=== PATIENT | female | born 1970 | race Hispanic/Latino ===

== ENCOUNTER 2017-09-11 18:39 | Emergency (ER) | payer SELFPAY ==
[2017-09-11] MEDS ORDERED: Ketorolac Tromethamine 30 MG/ML VIAL ONE (19:38)
--- NOTE | 2017-09-11 20:26 | RAD ---
TWO VIEWS RIGHT FORELEG: Indication: Right leg pain for two weeks after an injury while playing soccer with his son. Comparison: None. IMPRESSION: No acute osseous abnormality. No soft tissue abnormality demonstrated. POS: [facility]
--- NOTE | 2017-09-11 21:15 | ULT ---
DOPPLER VENOUS ULTRASOUND OF THE RIGHT LOWER EXTREMITY: Indication: Right lower extremity pain for two weeks after playing soccer. TECHNIQUE: Jurado scale, color Doppler, and vascular duplex with spectral analysis was performed of the deep veno us structures of the right lower extremity. The common femoral vein, superficial femoral vein, popli teal vein, posterior tibial vein, proximal greater saphenous, and proximal profunda veins were asses sed. FINDINGS: There is normal compression, flow, and augmentation seen within the deep venous structures of the ri ght lower extremity. IMPRESSION: No evidence of DVT within the right lower extremity. POS: [facility]
== END 2017-09-11 21:05 | disposition home or self-care (01) ==
LOC: ERS 18:39
DX: S80.11XA Contusion of right lower leg, initial encounter (principal); E11.9 Type 2 diabetes mellitus without complications; W21.02XA Struck by soccer ball, initial encounter; Y93.66 Activity, soccer
CPT/HCPCS: 96372; J1885

== ENCOUNTER 2017-10-22 16:45 | Emergency (ER) | payer SELFPAY ==
[2017-10-22 17:40] LABS: Bilirubin Negative (Negative); Blood, Urine Negative (Negative); Glucose, Urine (Dipstick) Negative (Negative); Ketone, Urine Negative (Negative); Nitrite Negative (Negative); Protein, Urine (Dipstick) Negative (Neg-Trace); Urobilinogen 0.2 mg/dL (0.2-1.0)
[2017-10-22 17:40] LABS: #Basophils 0.1 thou/uL (0.0-0.2); #Eosinphils 0.1 thou/uL (0.0-0.7); #Lymphocytes 3.7 thou/uL (1.20-3.40); #Monocytes 0.8 thou/uL (0.11-0.59); #Neutrophils 5.3 thou/uL (1.40-6.50); %Eosinophils 1.4 % (0.0-10.0); %Lymphocytes 36.9 % (21.0-51.0); %Monocytes 7.5 % (0.0-10.0); Hematocrit 43.8 % (36.0-47.0); Red Blood Cell (RBC) Count 4.88 mill/uL (4.20-5.40)
[2017-10-22 18:03] LABS: ALT (SGPT) 21 U/L (8-55); AST (SGOT) 15 U/L (5-34); Alkaline Phosphatase 105 U/L (40-150); Anion Gap 15 mmol/L (10-20); BUN (Urea Nitrogen) 15 mg/dL (7.0-18.7); Bilirubin, Total 0.2 mg/dL (0.2-1.2); Calc. Creatinine Clearance 0 mL/min (70-130); Calcium 9.8 mg/dL (7.8-10.44); Carbon Dioxide 24 mmol/L (22-29); Chloride 105 mmol/L (98-107); Estimated GFR-MDRD 89; Globulin 3.6 g/dL (2.4-3.5); Protein, Total 7.9 g/dL (6.0-8.3)
[2017-10-22] MEDS ORDERED: Dicyclomine 20 MG TAB ONE (18:20)
--- NOTE | 2017-10-22 18:36 | ULT ---
RIGHT UPPER QUADRANT ULTRASOUND: Date: 10/22/17 COMPARISON: None. HISTORY: Right upper quadrant pain. TECHNIQUE: Multiplanar Jurado scale sonographic imaging of the right upper quadrant provided. FINDINGS: Imaged pancreatic parenchyma is grossly unremarkable. The tail is obscured by bowel gas. No focal elizabeth er lesion or intrahepatic biliary dilatation. CBD measures 2.0 mm, within normal limits. The sonograp her reports a negative Coleman's sign. No gallbladder wall thickening, pericholecystic fluid, or galls tones noted. The right kidney measures 9.5 cm in craniocaudal dimension and demonstrates no stone, hydronephrosis, or mass lesion. IMPRESSION: No acute findings. POS: [facility]
--- NOTE | 2017-10-22 19:27 | RAD ---
PORTABLE UPRIGHT FRONTAL CHEST RADIOGRAPH: Date: 10/22/17 COMPARISON: 06/02/14. HISTORY: Nausea and vomiting, pain. FINDINGS: No pneumothorax, pleural fluid, focal consolidation, or alveolar edema. Heart and mediastinal contour s unremarkable. IMPRESSION: No acute findings. POS: [facility]
== END 2017-10-22 20:47 | disposition home or self-care (01) ==
LOC: ERS 16:45
DX: K29.70 Gastritis, unspecified, without bleeding (principal); K21.9 Gastro-esophageal reflux disease without esophagitis; E11.9 Type 2 diabetes mellitus without complications; Z79.84 Long term (current) use of oral hypoglycemic drugs; Z79.899 Other long term (current) drug therapy
CPT/HCPCS: 71010; 76705; 80053; 81003; 81025; 83690; 85025; 94640; J7620

== ENCOUNTER 2018-01-30 00:36 | Emergency (ER) | payer SELFPAY ==
[2018-01-30] MEDS ORDERED: Ketorolac Tromethamine 30 MG/ML VIAL ONE (01:00)
[2018-01-30] MEDS ORDERED: Morphine 4 MG/ML VIAL ONE (01:01)
== END 2018-01-30 01:24 | disposition home or self-care (01) ==
LOC: ERS 00:36
DX: S39.012A Strain of muscle, fascia and tendon of lower back, initial encounter (principal); E11.9 Type 2 diabetes mellitus without complications; Z79.84 Long term (current) use of oral hypoglycemic drugs; X58.XXXA Exposure to other specified factors, initial encounter
CPT/HCPCS: 96372; J1885; J2270

== ENCOUNTER 2018-03-25 05:53 | Emergency (ER) | payer SELFPAY | END 2018-03-25 06:50 | disposition home or self-care (01) | LOC: ERS 05:53 | DX: H66.92 Otitis media, unspecified, left ear (principal); E11.9 Type 2 diabetes mellitus without complications; Z79.899 Other long term (current) drug therapy; Z79.84 Long term (current) use of oral hypoglycemic drugs | CPT/HCPCS: 99282 ==

== ENCOUNTER 2018-07-11 08:13 | Emergency (ER) | payer SELFPAY ==
[2018-07-11 08:34] LABS: Bilirubin Negative (Negative); Blood, Urine Negative (Negative); Clarity CLOUDY (Clear); Glucose, Urine (Dipstick) Negative (Negative); Leukocyte Negative (Negative); Nitrite Negative (Negative); Protein, Urine (Dipstick) Negative (Neg-Trace); Specific Gravity, Urine 1.023 (1.002-1.036); Urobilinogen 0.2 mg/dL (0.2-1.0); pH, Urine 5.5 (5.0-9.0)
[2018-07-11 08:45] LABS: #Basophils 0.1 thou/uL (0.0-0.2); #Eosinphils 0.2 thou/uL (0.0-0.7); #Lymphocytes 3.2 thou/uL (1.20-3.40); #Monocytes 0.6 thou/uL (0.11-0.59); #Neutrophils 4.7 thou/uL (1.40-6.50); %Eosinophils 1.9 % (0.0-10.0); %Lymphocytes 36.3 % (21.0-51.0); %Monocytes 6.3 % (0.0-10.0); %Neutrophils 54.5 % (42.0-75.0); Hemoglobin 13.7 g/dL (12.0-16.0); Mean Corpuscular HGB CONC 33.7 g/dL (32.0-36.0); Mean Corpuscular Hemoglobin 28.6 pg (27.0-31.0); Mean Corpuscular Volume 84.9 fL (78.0-98.0); Mean Platelet Volume 7.9 fL (7.4-10.4); Platelet Count 305 thou/uL (130-400); RBC Distribution Width 12.4 % (11.5-14.5); Red Blood Cell (RBC) Count 4.81 mill/uL (4.20-5.40); White Blood Cell (WBC) Count 8.7 thou/uL (4.8-10.8)
[2018-07-11 09:01] LABS: ALT (SGPT) 66 U/L (8-55); AST (SGOT) 39 U/L (5-34); Albumin 4.4 g/dL (3.5-5.0); Alkaline Phosphatase 103 U/L (40-150); Anion Gap 14 mmol/L (10-20); BUN (Urea Nitrogen) 14 mg/dL (7.0-18.7); Bilirubin, Total 0.3 mg/dL (0.2-1.2); Calc. Creatinine Clearance 0 mL/min (70-130); Calcium 10.1 mg/dL (7.8-10.44); Carbon Dioxide 24 mmol/L (22-29); Chloride 103 mmol/L (98-107); Estimated GFR-MDRD 77; Globulin 3.7 g/dL (2.4-3.5); Glucose 199 mg/dL (70-105); Lipase 13 U/L (8-78); Potassium 4.4 mmol/L (3.5-5.1); Protein, Total 8.1 g/dL (6.0-8.3); Sodium 137 mmol/L (136-145)
[2018-07-11] MEDS ORDERED: Ondansetron ODT 8 MG TAB ONE (09:25)
[2018-07-11] MEDS ORDERED: Dicyclomine 20 MG TAB ONE (09:25)
== END 2018-07-11 09:54 | disposition home or self-care (01) ==
LOC: ERS 08:13
DX: R19.7 Diarrhea, unspecified (principal); R11.0 Nausea; E11.9 Type 2 diabetes mellitus without complications; Z79.84 Long term (current) use of oral hypoglycemic drugs
CPT/HCPCS: 36415; 80053; 81003; 83690; 85025; 99284

== ENCOUNTER 2018-09-28 07:30 | Emergency (ER) | payer SELFPAY ==
[2018-09-28 08:01] LABS: Bilirubin Negative (Negative); Blood, Urine Large (Negative); Clarity CLOUDY (Clear); Glucose, Urine (Dipstick) 250 mg/dL (Negative); Leukocyte Large (Negative); Nitrite Negative (Negative); Protein, Urine (Dipstick) Negative (Neg-Trace); Specific Gravity, Urine 1.004 (1.002-1.036); Urobilinogen 0.2 mg/dL (0.2-1.0); pH, Urine 6.5 (5.0-9.0)
[2018-09-28 08:05] LABS: Bacteria/HPF None Seen HPF (None Seen); Hyaline Casts/LPF 0-3 HYALINE CAST LPF (0-3 Hyaline); Pathc Cast-AUWi Flag 0.72 (0-2.49); RBC/HPF 0-3 HPF (0-3); Squamous Epithelial None Seen HPF (0-3)
[2018-09-28 08:30] LABS: Pregnancy Test - Urine (BHCG) Negative (Negative); Pregu Control Background? CLEAR/WHITE (CLR/WHITE); Pregu Control Bar Appear? YES (CONTROL BAR); Specific Gravity 1.004 (1.002-1.036)
[2018-09-28] MEDS ORDERED: Ketorolac Tromethamine 60 MG/2 ML VIAL ONE (08:52)
[2018-09-28 09:00] LABS: #Basophils 0.1 thou/uL (0.0-0.2); #Eosinphils 0.1 thou/uL (0.0-0.7); #Lymphocytes 2.8 thou/uL (1.20-3.40); #Monocytes 0.6 thou/uL (0.11-0.59); #Neutrophils 6.3 thou/uL (1.40-6.50); %Basophils 0.5 % (0.0-1.0); %Eosinophils 1.1 % (0.0-10.0); %Lymphocytes 28.4 % (21.0-51.0); %Monocytes 5.8 % (0.0-10.0); %Neutrophils 64.2 % (42.0-75.0); Hemoglobin 13.4 g/dL (12.0-16.0); Mean Corpuscular HGB CONC 32.8 g/dL (32.0-36.0); Mean Corpuscular Hemoglobin 28.2 pg (27.0-31.0); Mean Corpuscular Volume 86.2 fL (78.0-98.0); Mean Platelet Volume 8.4 fL (7.4-10.4); Platelet Count 275 thou/uL (130-400); RBC Distribution Width 11.9 % (11.5-14.5); Red Blood Cell (RBC) Count 4.76 mill/uL (4.20-5.40); White Blood Cell (WBC) Count 9.8 thou/uL (4.8-10.8)
[2018-09-28] MEDS ORDERED: Ciprofloxacin 500 MG TAB ONE (09:07)
[2018-09-28 09:24] LABS: ALT (SGPT) 51 U/L (8-55); AST (SGOT) 22 U/L (5-34); Alkaline Phosphatase 106 U/L (40-150); Anion Gap 11 mmol/L (10-20); BUN (Urea Nitrogen) 7 mg/dL (7.0-18.7); Bilirubin, Total 0.5 mg/dL (0.2-1.2); Calc. Creatinine Clearance 0 mL/min (70-130); Calcium 9.8 mg/dL (7.8-10.44); Carbon Dioxide 28 mmol/L (22-29); Chloride 103 mmol/L (98-107); Estimated GFR-MDRD 83; Globulin 3.2 g/dL (2.4-3.5); Glucose 296 mg/dL (70-105); Potassium 4.2 mmol/L (3.5-5.1); Protein, Total 7.2 g/dL (6.0-8.3); Sodium 138 mmol/L (136-145)
== END 2018-09-28 09:27 | disposition home or self-care (01) ==
LOC: ERS 07:30
DX: N39.0 Urinary tract infection, site not specified (principal); E11.9 Type 2 diabetes mellitus without complications; Z79.84 Long term (current) use of oral hypoglycemic drugs
CPT/HCPCS: 36415; 80053; 81003; 81015; 81025; 85025; 87086; 96372; J1885

== ENCOUNTER 2018-11-19 08:00 | Emergency (ER) | payer SELFPAY ==
[2018-11-19] MEDS ORDERED: Ondansetron ODT 4 MG TAB ONE (08:56)
[2018-11-19 09:08] LABS: #Eosinphils 0.1 thou/uL (0.0-0.7); #Lymphocytes 1.9 thou/uL (1.20-3.40); #Monocytes 0.4 thou/uL (0.11-0.59); #Neutrophils 5.6 thou/uL (1.40-6.50); %Basophils 0.2 % (0.0-1.0); %Eosinophils 0.8 % (0.0-10.0); %Lymphocytes 24.2 % (21.0-51.0); %Monocytes 4.4 % (0.0-10.0); %Neutrophils 70.5 % (42.0-75.0); Hemoglobin 13.8 g/dL (12.0-16.0); Mean Corpuscular HGB CONC 33.3 g/dL (32.0-36.0); Mean Corpuscular Hemoglobin 28.4 pg (27.0-31.0); Mean Corpuscular Volume 85.3 fL (78.0-98.0); Mean Platelet Volume 7.9 fL (7.4-10.4); Platelet Count 287 thou/uL (130-400); Red Blood Cell (RBC) Count 4.86 mill/uL (4.20-5.40)
[2018-11-19 09:27] LABS: ALT (SGPT) 27 U/L (8-55); AST (SGOT) 11 U/L (5-34); Alkaline Phosphatase 95 U/L (40-150); Anion Gap 12 mmol/L (10-20); BUN (Urea Nitrogen) 10 mg/dL (7.0-18.7); Bilirubin, Total 0.5 mg/dL (0.2-1.2); Calc. Creatinine Clearance 0 mL/min (70-130); Calcium 9.4 mg/dL (7.8-10.44); Carbon Dioxide 24 mmol/L (22-29); Chloride 105 mmol/L (98-107); Estimated GFR-MDRD 86; Globulin 3.3 g/dL (2.4-3.5); Glucose 156 mg/dL (70-105); Lipase 8 U/L (8-78); Potassium 4.1 mmol/L (3.5-5.1); Protein, Total 7.3 g/dL (6.0-8.3); Sodium 137 mmol/L (136-145)
[2018-11-19 09:42] LABS: Bilirubin Negative (Negative); Blood, Urine Negative (Negative); Clarity CLOUDY (Clear); Glucose, Urine (Dipstick) Negative (Negative); Leukocyte Large (Negative); Nitrite Negative (Negative); Protein, Urine (Dipstick) Negative (Neg-Trace); Specific Gravity, Urine 1.021 (1.002-1.036); Urobilinogen 0.2 mg/dL (0.2-1.0)
[2018-11-19 09:44] LABS: Bacteria/HPF 1+ HPF (None Seen); Hyaline Casts/LPF 4-6 HYALINE CAST LPF (0-3 Hyaline); Pregnancy Test - Urine (BHCG) Negative (Negative); Pregu Control Bar Appear? YES (CONTROL BAR); Specific Gravity 1.021 (1.002-1.036)
[2018-11-19 09:45] LABS: Pregu Control Background? CLEAR/WHITE (CLR/WHITE)
== END 2018-11-19 10:06 | disposition home or self-care (01) ==
LOC: ERS 08:00
DX: R19.7 Diarrhea, unspecified (principal); R11.0 Nausea; N39.0 Urinary tract infection, site not specified; E11.9 Type 2 diabetes mellitus without complications; Z79.84 Long term (current) use of oral hypoglycemic drugs; Z79.899 Other long term (current) drug therapy
CPT/HCPCS: 36415; 80053; 81003; 81015; 81025; 83690; 85025; 96372; Q0162

== ENCOUNTER 2019-02-04 15:00 | Emergency (ER) | payer SELFPAY | END 2019-02-04 17:10 | disposition left against medical advice (07) | LOC: ERS 15:00 | DX: Z53.21 Procedure and treatment not carried out due to patient leaving prior to being seen by health care provider (principal) ==

== ENCOUNTER 2019-02-11 08:24 | Emergency (ER) | payer SELFPAY ==
[2019-02-11] MEDS ORDERED: HYDROcodone/Acetaminophen 5/325 mg Tablet ONE (09:08)
--- NOTE | 2019-02-11 09:34 | RAD ---
LEFT FOOT 3 VIEWS: DATE: 02/11/2019. COMPARISON: None. HISTORY: Left foot injury. FINDINGS: There is a midshaft left 5th proximal phalanx fracture with no significant displacement. No evidence for dislocation. No additional fracture. IMPRESSION: Fracture involving the midshaft of the 5th proximal phalanx. POS: [facility]
== END 2019-02-11 09:15 | disposition home or self-care (01) ==
LOC: ERS 08:24
DX: S92.512A Displaced fracture of proximal phalanx of left lesser toe(s), initial encounter for closed fracture (principal); E11.9 Type 2 diabetes mellitus without complications; W22.8XXA Striking against or struck by other objects, initial encounter

== ENCOUNTER 2019-05-09 10:47 | Observation (INO) | payer SELFPAY ==
[2019-05-09] MEDS ORDERED: ISOVUE-370 76%-LOCM 1 ML ONE (10:50)
[2019-05-09 11:31] LABS: #Eosinphils 0.1 thou/uL (0.0-0.7); #Lymphocytes 3.3 thou/uL (1.20-3.40); #Monocytes 0.7 thou/uL (0.11-0.59); #Neutrophils 6.2 thou/uL (1.40-6.50); %Basophils 0.3 % (0.0-1.0); %Eosinophils 0.9 % (0.0-10.0); %Monocytes 6.7 % (0.0-10.0); %Neutrophils 60.1 % (42.0-75.0); Hemoglobin 13.4 g/dL (12.0-16.0); Mean Corpuscular HGB CONC 33.3 g/dL (32.0-36.0); Mean Corpuscular Hemoglobin 28.1 pg (27.0-31.0); Mean Corpuscular Volume 84.5 fL (78.0-98.0); Mean Platelet Volume 8.4 fL (7.4-10.4); Platelet Count 315 thou/uL (130-400); RBC Distribution Width 12.4 % (11.5-14.5); Red Blood Cell (RBC) Count 4.78 mill/uL (4.20-5.40); White Blood Cell (WBC) Count 10.3 thou/uL (4.8-10.8)
[2019-05-09] MEDS ORDERED: Aspirin Chewable 81 MG TAB ONE (11:34)
[2019-05-09] MEDS ORDERED: Nitroglycerin 2% Ointment 1 INCH/1 GM Packet ONE (11:34)
--- NOTE | 2019-05-09 11:47 | RAD ---
EXAM: Single view of the chest HISTORY: Chest pain COMPARISON: 10/22/2017 FINDINGS: Single view of the chest shows a normal sized cardiomediastinal silhouette. There is no selam dence of consolidation, mass, or pleural effusion. The bones are unremarkable. IMPRESSION: No evidence of acute cardiopulmonary disease
[2019-05-09] MEDS ORDERED: Guaifenesin DM 100-10/5 ML UDCUP PO PRN (12:03)
[2019-05-09] MEDS ORDERED: HumaLOG 300 UNITS/3 ML VIAL SC PRN ×2 (12:03)
[2019-05-09] MEDS ORDERED: Dextrose 5% in Water 1,000 ML IV PRN (12:03)
[2019-05-09] MEDS ORDERED: Acetaminophen 325 MG TAB PO PRN (12:03)
[2019-05-09] MEDS ORDERED: Dextrose 50% Abboject 50 ML SYRINGE SLOW IVP PRN (12:03)
[2019-05-09 12:29] LABS: ALT (SGPT) 32 U/L (8-55); AST (SGOT) 19 U/L (5-34); Albumin 4.3 g/dL (3.5-5.0); Alkaline Phosphatase 90 U/L (40-150); Anion Gap 18 mmol/L (10-20); BUN (Urea Nitrogen) 20 mg/dL (7.0-18.7); Bilirubin, Total 0.4 mg/dL (0.2-1.2); CK (CPK) 81 U/L (29-168); Calc. Creatinine Clearance 0 mL/min (70-130); Calcium 9.7 mg/dL (7.8-10.44); Carbon Dioxide 21 mmol/L (22-29); Chloride 100 mmol/L (98-107); Estimated GFR-MDRD 56; Globulin 3.9 g/dL (2.4-3.5); Glucose 233 mg/dL (70-105); Lipase 12 U/L (8-78); Protein, Total 8.2 g/dL (6.0-8.3); Sodium 134 mmol/L (136-145)
[2019-05-09] MEDS ORDERED: ADENOSINE 60 MG/20 ML VIAL ONE (12:43)
[2019-05-09 13:04] LABS: Troponin I Less than 0.010 ng/mL (< 0.028)
[2019-05-09 13:52] VITALS: BMI 28.3
--- NOTE | 2019-05-09 14:34 | CT ---
CT PULMONARY ANGIOGRAM WITH IV CONTRAST AND 3D POSTPROCESSING: HISTORY: Chest pain, dizziness. FINDINGS: There is good contrast opacification of the pulmonary arterial vasculature without filling defects to suggest pulmonary embolism. There are vascular calcifications without aneurysm of the thoracic aort a. No pleural or pericardial effusions are seen. No pneumothoraces, focal areas of consolidation, l carmelita nodules, or masses are identified. No acute osseous abnormalities are seen. IMPRESSION: No CT evidence of pulmonary embolism. POS: [facility]
[2019-05-09 16:08] LABS: Troponin I Less than 0.010 ng/mL (< 0.028)
--- NOTE | 2019-05-09 16:13 | HP ---
REASON FOR ADMISSION: Chest pain, acute bronchitis. HISTORY OF PRESENTING ILLNESS: The patient gives history of developing left- sided chest pain at her workplace. This is more of a tightness along with shortness of breath. This pain also radiated to her upper back area. The pain was 4 to 5/ 10 in intensity. She also complains of cough with expectoration of green sputum. No fever as such at home. She works in a [employer] company. She has had no fever. No complaints of urinary symptoms including frequency or urgency. No prior cardiac workup including stress test. Currently, her chest tightness and shortness of breath have cleared up. PAST MEDICAL AND SURGICAL HISTORY: History of diabetes mellitus type 2 from last 12 years, GERD, x3, hysterectomy. CURRENT MEDICATIONS: 1. Metformin 500 mg p.o. twice daily. 2. Nexium 40 mg p.o. daily. ALLERGIES: NO KNOWN DRUG ALLERGIES. PERSONAL HISTORY: Does not abuse alcohol or drugs. No history of smoking. FAMILY HISTORY: Father when she was 7 years old. He apparently had hemoptysis and was a smoker. Exact cause of is not known to her. Mother at the age of 78 years. She has had history of colon cancer and diabetes. CODE STATUS: Full. REVIEW OF SYSTEMS: CONSTITUTIONAL: Negative for weight loss or gain, ability to conduct usual activities. SKIN: Negative for rash, itching. EYES: Negative for double vision, pain. ENT/MOUTH: Negative for nose bleeding, neck stiffness, pain, tenderness. CARDIOVASCULAR: Negative for palpitations, dyspnea on exertion, orthopnea. RESPIRATORY: Negative for shortness of breath, wheezing, cough, hemoptysis, fever or night sweats. GASTROINTESTINAL: Negative for poor appetite, abdominal pain, heartburn, nausea , vomiting, constipation, or diarrhea. GENITOURINARY: Negative for urgency, frequency, dysuria, nocturia. MUSCULOSKELETAL: Negative for pain, swelling. NEUROLOGIC/PSYCHIATRIC: Negative for anxiety, depression. ALLERGY/IMMUNOLOGIC: Negative for skin rash, bleeding tendency. PHYSICAL EXAMINATION: GENERAL: The patient is a 49-year-old female, who is currently not in any acute distress. VITAL SIGNS: Blood pressure 118/74, pulse 84 per minute, respiratory rate 22 per minute, temperature 98.3 degrees Fahrenheit, saturating 98% on room air. NECK: Supple. No elevated JVD. HEENT: Eyes; extraocular muscles intact. Pupils reacting to light. Oral cavity, mucous membranes are moist. No exudates or congestion. CARDIOVASCULAR SYSTEM: S1 and S2 heard. Regular rhythm. RESPIRATORY SYSTEM: Air entry 1+ bilateral. Scattered rhonchi plus no rales or wheezes. ABDOMEN: Soft. Bowel sounds heard. No tenderness, rigidity, or guarding. EXTREMITIES: No peripheral edema or calf tenderness. VASCULAR SYSTEM: Peripheral pulses 1+ bilateral. No ischemic ulcerations or gangrene. CENTRAL NERVOUS SYSTEM: No gross focal deficits noted. The patient is alert, awake, oriented well. PSYCHIATRIC SYSTEM: The patient's mood is euthymic. No hallucinations or delusions. LABORATORY DATA: EKG done shows normal sinus rhythm at 77 beats per minute. White count of 10, H and H 13 and 40, platelet count 315 with 60% neutrophils, MCV is 84. Sodium 134, serum bicarb 21, BUN 20, creatinine 1.0, serum glucose 233. Liver enzymes within normal limits. Troponin x2 negative. CK level is 81. Albumin is 4.3. Lipase is 12. CT angio chest done shows no evidence of PE. No acute infiltrate was seen. CLINICAL IMPRESSION AND PLAN: The patient will be under observation on telemetry for chest pain, rule out acute coronary syndrome and acute bronchitis. We will obtain 2 more sets of cardiac enzymes and schedule her for nuclear stress test. We will also place her on Levaquin for acute bronchitis. The patient also takes Glucotrol in addition to metformin, so we will continue her Glucotrol for now and hold metformin until the stress test is complete. Full dose aspirin and Humalog coverage for now. We will continue her Nexium as before. We will continue to closely monitor her on telemetry. Job ID: [id number] [facility]
--- NOTE | 2019-05-09 16:51 | NM ---
Nuclear medicine Cardiac myocardial perfusion SPECT Ejection fraction study Wall motion cine: DATE: 05/09/2019 HISTORY: 49-year-old diabetic female presents with chest pain TECHNIQUE: Number of days:1 Rest study: Not performed. Pharmacologic stress: Adenosine dose:37.9 mg Stress study: Technetium 99m-sestamibi (Cardiolite) dose:29.9 mCi FINDINGS: Cardiac (myocardial perfusion) SPECT There are no fixed or reversible myocardial perfusion defects. Ejection fraction study Left ventricular EF = 78 Wall motion cine Normal IMPRESSION: Normal.
[2019-05-10 05:09] LABS: #Eosinphils 0.2 thou/uL (0.0-0.7); #Lymphocytes 3.8 thou/uL (1.20-3.40); #Monocytes 0.6 thou/uL (0.11-0.59); #Neutrophils 3.9 thou/uL (1.40-6.50); %Basophils 0.5 % (0.0-1.0); %Eosinophils 2.2 % (0.0-10.0); %Lymphocytes 44.7 % (21.0-51.0); %Monocytes 7.1 % (0.0-10.0); %Neutrophils 45.5 % (42.0-75.0); Hemoglobin 13.7 g/dL (12.0-16.0); Mean Corpuscular HGB CONC 32.7 g/dL (32.0-36.0); Mean Corpuscular Volume 85.5 fL (78.0-98.0); Platelet Count 327 thou/uL (130-400); RBC Distribution Width 12.5 % (11.5-14.5); Red Blood Cell (RBC) Count 4.89 mill/uL (4.20-5.40); White Blood Cell (WBC) Count 8.5 thou/uL (4.8-10.8)
[2019-05-10 05:32] LABS: Anion Gap 13 mmol/L (10-20); BUN (Urea Nitrogen) 14 mg/dL (7.0-18.7); Calc. Creatinine Clearance 105 mL/min (70-130); Calcium 9.7 mg/dL (7.8-10.44); Carbon Dioxide 25 mmol/L (22-29); Cardiac Risk 3.9 (Less than 4.5); Chloride 102 mmol/L (98-107); Cholesterol 208 mg/dl (< 200 Desired); Estimated GFR-MDRD 87; Glucose 119 mg/dL (70-105); HDL Cholesterol 53 mg/dL (>60 Neg Risk); LDL Cholesterol, Calculated 118 mg/dL; Potassium 4.4 mmol/L (3.5-5.1); Sodium 136 mmol/L (136-145); Triglycerides 184 mg/dL (Less than 150)
[2019-05-10 08:13] VITALS: BP 112/64; TEMP 97.5
[2019-05-10] MEDS ORDERED: Aspirin 325 mg Enteric Coated Tablet PO SCH (09:00)
[2019-05-10] MEDS ORDERED: Enoxaparin Sodium 40 MG/0.4 ML SYRINGE SC SCH (09:00)
--- NOTE | 2019-05-10 12:56 | EKG ---
Test Reason : Blood Pressure : / mmHG Vent. Rate : 077 BPM Atrial Rate : 077 BPM P-R Int : 134 ms QRS Dur : 072 ms QT Int : 372 ms P-R-T Axes : 046 011 020 degrees QTc Int : 420 ms Normal sinus rhythm with sinus arrhythmia Normal ECG Confirmed by CAMILO COWART, DARIA ([id number]), writer editor KP KIRBY ([id number]) on 05/10/2019 12:56:16 PM Referred By: Confirmed By:DARIA PAGE MD
--- NOTE | 2019-05-11 05:53 | DIS ---
DATE OF ADMISSION: 05/09/2019 DATE OF DISCHARGE: 05/10/2019 PRIMARY CARE PHYSICIAN: Dr. Celena Giraldo at [facility]. DISCHARGE DIAGNOSES: 1. Atypical chest pain. 2. Acute bronchitis. 3. Type 2 diabetes mellitus. 4. Gastroesophageal reflux disease. 5. Dyslipidemia. DIAGNOSTIC STUDIES: Pertinent diagnostic test, CT angio chest negative for PE or pneumonia. Nuclear stress test negative for reversible ischemia. HOSPITAL COURSE: A 49-year-old female with past medical history significant for type 2 diabetes, who was admitted due to acute onset of left-sided chest pain described as sharp, tightness, associated with shortness of breath. The patient has been coughing with greenish sputum production. There was some concern for PE as well as acute coronary syndrome. Both, however, we have rule out with CT angio and nuclear stress test. The patient was also started on Levaquin for acute bronchitis with improvement. She remained stable and was subsequently discharged home to continue treatment. She was given a 5-day course of Levaquin and Mucinex. She is to continue her usual home medications. She is also to follow up with PCP in 7 days. PHYSICAL EXAMINATION: VITAL SIGNS: Temperature 97.8, pulse 89, respiratory rate 16, SpO2 of 100 on room air, and blood pressure 130/75. GENERAL: Obese female, in no obvious distress. Afebrile. Anicteric. Acyanotic. HEENT: Normocephalic, atraumatic. CARDIOVASCULAR: Regular rhythm and rate with normal heart sounds one and two. RESPIRATORY: Fair air entry bilaterally with no obvious crackle or rhonchi or use of accessory muscles. GI: Full, soft, nontender, nondistended with normal bowel sounds. EXTREMITIES: Grossly normal looking atraumatic with no edema, erythema, or cyanosis. NEUROLOGIC: Conscious, alert, and oriented x3 with appropriate mental status. Cranial nerves 2 through 12 are intact. DISCHARGE CONDITION: Improved and stable. DISCHARGE MEDICATIONS: 1. Nexium 40 mg p.o. daily. 2. Glipizide 5 mg p.o. b.i.d. 3. Metformin 1000 mg p.o. b.i.d. 4. Mucinex 600 mg p.o. b.i.d. for 5 days. 5. Levofloxacin 500 mg p.o. daily for 5 days. Job ID: [id number]
== END 2019-05-10 10:05 | disposition home or self-care (01) ==
LOC: ERS 10:47 → 2SW 12:03
PROVIDERS: ADMIT Internal Medicine; ATTEND Internal Medicine
DX: R07.89 Other chest pain (principal); J20.9 Acute bronchitis, unspecified; E11.9 Type 2 diabetes mellitus without complications; K21.9 Gastro-esophageal reflux disease without esophagitis; E78.5 Hyperlipidemia, unspecified; Z79.84 Long term (current) use of oral hypoglycemic drugs; Z79.899 Other long term (current) drug therapy
CPT/HCPCS: 36415; 36416; 71045; 71275; 78452; 80048; 80053; 80061; 82550; 83690; 84484; 85025; 93005; 93017; 94760; 96360; A9500; G0378; J0153; Q9966

== ENCOUNTER 2019-10-31 19:22 | Emergency (ER) | payer SELFPAY ==
[2019-10-31] MEDS ORDERED: Ondansetron PF 4 MG/2 ML Vial ONE (19:52)
[2019-10-31] MEDS ORDERED: Lidocaine Viscous Sol 2% 15 ml UD Cup ONE (19:52)
[2019-10-31] MEDS ORDERED: Mag-Al 1200 mg/1200 mg/30 ML UDCUP ONE (19:52)
[2019-10-31 20:13] LABS: ALT (SGPT) 42 U/L (8-55); AST (SGOT) 17 U/L (5-34); Albumin 4.2 g/dL (3.5-5.0); Alkaline Phosphatase 121 U/L (40-110); Anion Gap 13 mmol/L (10-20); BUN (Urea Nitrogen) 17 mg/dL (7.0-18.7); Bilirubin, Total 0.3 mg/dL (0.2-1.2); Calc. Creatinine Clearance 0 mL/min (70-130); Calcium 9.6 mg/dL (7.8-10.44); Carbon Dioxide 26 mmol/L (22-29); Chloride 103 mmol/L (98-107); Estimated GFR-MDRD 67; Globulin 3.4 g/dL (2.4-3.5); Glucose 222 mg/dL (70-105); Lipase 21 U/L (8-78); Potassium 4.1 mmol/L (3.5-5.1); Protein, Total 7.6 g/dL (6.0-8.3); Sodium 138 mmol/L (136-145)
[2019-10-31 20:21] LABS: #Basophils 0.1 thou/uL (0.0-0.2); #Eosinphils 0.1 thou/uL (0.0-0.7); #Lymphocytes 4.1 thou/uL (1.20-3.40); #Monocytes 0.7 thou/uL (0.11-0.59); #Neutrophils 5.2 thou/uL (1.40-6.50); %Basophils 0.9 % (0.0-1.0); %Eosinophils 1.1 % (0.0-10.0); %Lymphocytes 40.2 % (21.0-51.0); %Monocytes 6.7 % (0.0-10.0); %Neutrophils 51.1 % (42.0-75.0); Hemoglobin 14.3 g/dL (12.0-16.0); Mean Corpuscular HGB CONC 34.4 g/dL (32.0-36.0); Mean Corpuscular Volume 84.1 fL (78.0-98.0); Mean Platelet Volume 8.9 fL (7.4-10.4); Platelet Count 311 thou/uL (130-400); Red Blood Cell (RBC) Count 4.93 mill/uL (4.20-5.40); White Blood Cell (WBC) Count 10.2 thou/uL (4.8-10.8)
--- NOTE | 2019-10-31 20:51 | ULT ---
GALLBLADDER ULTRASOUND: 10/31/19 INDICATION: Right upper quadrant pain/epigastric pain. Gallbladder has a normal sonographic appearance. No evidence of gallstones. Common duct is normal leticia iber. The liver and visualized pancreas appear unremarkable. The visualized right kidney is unremarka ble. IMPRESSION: Unremarkable gallbladder ultrasound. POS: [facility]
[2019-10-31 21:38] LABS: Bilirubin Negative (Negative); Blood, Urine Negative (Negative); Clarity Clear (Clear); Glucose, Urine (Dipstick) Greater than 1000 mg/dL (Negative); Leukocyte Negative Leu/uL (Negative); Nitrite Negative (Negative); Protein, Urine (Dipstick) 20 mg/dL (Neg-Trace); Urobilinogen Normal mg/dL (Less than 2)
== END 2019-10-31 22:43 | disposition home or self-care (01) ==
LOC: ERS 19:22
DX: K21.9 Gastro-esophageal reflux disease without esophagitis (principal); E11.9 Type 2 diabetes mellitus without complications; Z79.84 Long term (current) use of oral hypoglycemic drugs; Z79.899 Other long term (current) drug therapy
CPT/HCPCS: 36415; 76705; 80053; 81003; 83690; 84484; 85025; 96374; J2405

== ENCOUNTER 2019-12-31 20:15 | Emergency (ER) | payer SELFPAY | END 2019-12-31 20:50 | disposition home or self-care (01) | LOC: ERS 20:15 | DX: K02.9 Dental caries, unspecified (principal); K03.81 Cracked tooth; E11.9 Type 2 diabetes mellitus without complications | CPT/HCPCS: 99282 ==

== ENCOUNTER 2020-04-14 20:50 | Emergency (ER) | payer SELFPAY ==
[2020-04-14] MEDS ORDERED: Naproxen 500 MG TAB ONE (23:04)
== END 2020-04-14 23:09 | disposition home or self-care (01) ==
LOC: ERS 20:50
DX: K02.9 Dental caries, unspecified (principal); K08.89 Other specified disorders of teeth and supporting structures; E11.9 Type 2 diabetes mellitus without complications; Z79.84 Long term (current) use of oral hypoglycemic drugs; Z79.899 Other long term (current) drug therapy
CPT/HCPCS: 99282

== ENCOUNTER 2021-02-25 17:38 | Emergency (ER) | payer SELFPAY ==
[2021-02-25 18:38] LABS: Bacteria/HPF None Seen HPF (None Seen); Bilirubin Negative (Negative); Blood, Urine 1+ (Negative); Clarity Turbid (Clear); Glucose, Urine (Dipstick) Greater than 1000 mg/dL (Negative); Ketone, Urine Trace mg/dL (Negative); Leukocyte 500 Leu/uL (Negative); Nitrite Negative (Negative); Protein, Urine (Dipstick) 70 mg/dL (Neg-Trace); RBC/HPF 21-50 HPF (0-3); WBC/HPF Greater than 50 HPF (0-3)
[2021-02-25] MEDS ORDERED: Ketorolac Tromethamine 30 MG/ML VIAL ONE (19:56)
== END 2021-02-25 21:03 | disposition home or self-care (01) ==
LOC: ERS 17:38
DX: N39.0 Urinary tract infection, site not specified (principal); E11.9 Type 2 diabetes mellitus without complications; Z79.84 Long term (current) use of oral hypoglycemic drugs
CPT/HCPCS: 74176; 81003; 81015; 96372; J1885

== ENCOUNTER 2022-06-23 08:34 | Emergency (ER) | payer SELFPAY ==
[2022-06-23] MEDS ORDERED: Ibuprofen 800 MG TAB ONE (09:42)
== END 2022-06-23 10:05 | disposition home or self-care (01) ==
LOC: ERS 08:34
DX: S90.121A Contusion of right lesser toe(s) without damage to nail, initial encounter (principal); E11.9 Type 2 diabetes mellitus without complications; Z79.899 Other long term (current) drug therapy; Z79.84 Long term (current) use of oral hypoglycemic drugs; W20.8XXA Other cause of strike by thrown, projected or falling object, initial encounter

== ENCOUNTER 2022-12-17 07:46 | Emergency (ER) | payer SELFPAY ==
[2022-12-17 08:16] LABS: #Eosinphils 0.1 thou/uL (0.0-0.7); #Lymphocytes 1.6 thou/uL (1.20-3.40); #Monocytes 0.7 thou/uL (0.11-0.59); #Neutrophils 9.1 thou/uL (1.40-6.50); %Basophils 0.2 % (0.0-1.0); %Lymphocytes 13.6 % (21.0-51.0); %Neutrophils 79.2 % (42.0-75.0); Mean Corpuscular HGB CONC 32.7 g/dL (32.0-36.0); Mean Corpuscular Hemoglobin 28.2 pg (27.0-31.0); Mean Corpuscular Volume 86.2 fl (78.0-98.0); Mean Platelet Volume 9.6 fL (7.4-10.4); Platelet Count 218 10x3/uL (130-400); RBC Distribution Width 12.8 % (11.5-14.5); Red Blood Cell (RBC) Count 4.97 mill/uL (4.20-5.40); White Blood Cell (WBC) Count 11.5 10x3/uL (4.8-10.8)
[2022-12-17] MEDS ORDERED: Acetaminophen 500 MG TAB ONE (08:21)
[2022-12-17] MEDS ORDERED: Metoclopramide HCl 10 MG/2 ML VIAL ONE (08:21)
[2022-12-17] MEDS ORDERED: Ketorolac Tromethamine 30 MG/ML VIAL ONE (08:38)
[2022-12-17 09:20] LABS: SARS-CoV-2 NAA Rapid Test Not Detected (NotDetected)
[2022-12-17 09:22] LABS: Albumin 4.1 g/dL (3.5-5.0); Calcium 9.7 mg/dL (7.8-10.44); Chloride 100 mmol/L (98-107); Potassium 4.7 mmol/L (3.5-5.1); Sodium 135 mmol/L (136-145)
[2022-12-17 09:24] LABS: Anion Gap 17 mmol/L (10-20); Carbon Dioxide 23 mmol/L (22-29); Glucose 311 mg/dL (70-105)
[2022-12-17 09:25] LABS: Bilirubin, Total 0.6 mg/dL (0.2-1.2); Globulin 3.5 g/dL (2.4-3.5); Protein, Total 7.6 g/dL (6.0-8.3)
[2022-12-17 09:27] LABS: Alkaline Phosphatase 130 U/L (40-110)
[2022-12-17 09:28] LABS: AST (SGOT) 18 U/L (5-34); Calc. Creatinine Clearance 0 mL/min (70-130); Estimated GFR 88
[2022-12-17 09:29] LABS: BUN (Urea Nitrogen) 13 mg/dL (9.8-20.1)
[2022-12-17 09:30] LABS: ALT (SGPT) 40 U/L (8-55); CK (CPK) 100 U/L (29-168)
[2022-12-17 09:38] LABS: Bilirubin Negative (Negative); Blood, Urine Negative (Negative); Glucose, Urine (Dipstick) >=1000 mg/dL (Negative); Ketone, Urine 15 mg/dL (Negative); Leukocyte Negative (Negative); Nitrite Negative (Negative); Protein, Urine (Dipstick) Negative (Neg-Trace); Urobilinogen 0.2 mg/dL (Less than 2)
[2022-12-17 09:41] LABS: Clarity Clear (Clear)
[2022-12-17 09:42] LABS: Pregnancy Test - Urine (BHCG) Negative (Negative); Pregu Control Background? CLEAR/WHITE (CLR/WHITE); Pregu Control Bar Appear? YES (CONTROL BAR)
[2022-12-17 09:45] LABS: Bacteria/HPF None Seen HPF (None Seen); RBC/HPF 0-3 HPF (0-3); WBC/HPF None Seen HPF (0-3)
[2022-12-17 09:54] LABS: PTT 28.4 sec (22.9-36.1); Prothrombin Time 13.3 sec (12.0-14.7)
== END 2022-12-17 10:24 | disposition home or self-care (01) ==
LOC: ERS 07:46
DX: M79.10 Myalgia, unspecified site (principal); R51.9 Headache, unspecified; E11.9 Type 2 diabetes mellitus without complications; Z79.84 Long term (current) use of oral hypoglycemic drugs; Z20.822 Contact with and (suspected) exposure to COVID-19
CPT/HCPCS: 36415; 36416; 70450; 71045; 80053; 81003; 81025; 82550; 84484; 85025; 85610; 85730; 93005; 96365; 96375; J1885; J2765

== ENCOUNTER 2023-05-15 21:31 | Emergency (ER) | payer OTHER ==
[2023-05-15] MEDS ORDERED: Acetaminophen 500 MG TAB ONE (22:29)
[2023-05-15] MEDS ORDERED: Carbamide Peroxide 6.5% Otic Drops 15 ml Bottle ONE (22:34)
[2023-05-16] MEDS ORDERED: Acetaminophen 500 MG TAB ONE (00:28)
[2023-05-16] MEDS ORDERED: Ibuprofen 800 MG TAB ONE (00:28)
== END 2023-05-16 00:31 | disposition home or self-care (01) ==
LOC: ERS 21:31
DX: H61.21 Impacted cerumen, right ear (principal); E11.9 Type 2 diabetes mellitus without complications; Z79.84 Long term (current) use of oral hypoglycemic drugs
CPT/HCPCS: 99282

== ENCOUNTER 2025-06-29 19:56 | Emergency (ER) | payer OTHER, SELFPAY ==
[2025-06-29 22:39] LABS: #Basophils 0.04 10x3/uL (0.0-0.2); #Eosinophils 0.08 10x3/uL (0.0-0.7); #Monocytes 0.58 10x3/uL (0.11-0.59); #Neutrophils 4.77 10x3/uL (1.40-6.50); %Basophils 0.4 % (0.0-1.0); %Eosinophils 0.9 % (0.0-10.0); %Lymphocytes 41.2 % (21.0-51.0); %Monocytes 6.2 % (0.0-10.0); %Neutrophils 51.1 % (42.0-75.0); Hematocrit 39.2 % (36.0-47.0); Hemoglobin 12.8 g/dL (12.0-16.0); Mean Corpuscular Hemoglobin 28.0 pg (27.0-31.0); Mean Corpuscular Volume 85.8 fL (78.0-98.0); Platelet Count 317 10x3/uL (130-400); Red Blood Cell (RBC) Count 4.57 mill/uL (4.20-5.40); White Blood Cell (WBC) Count 9.33 10x3/uL (4.8-10.8)
[2025-06-29 22:46] LABS: ALT (SGPT) 24 U/L (Less than 34); AST (SGOT) 23 U/L (11-34); Albumin 3.5 g/dL (3.1-4.5); Alkaline Phosphatase 78 U/L (40-110); Anion Gap 15 mmol/L (10-20); BUN (Urea Nitrogen) 10 mg/dL (9.8-20.1); Bilirubin, Total 0.3 mg/dL (0.3-1.2); Calc. Creatinine Clearance 0 mL/min (70-130); Calcium 9.4 mg/dL (7.8-10.44); Carbon Dioxide 22 mmol/L (22-29); Chloride 105 mmol/L (98-107); Globulin 3.4 g/dL (2.4-3.5); Glucose 168 mg/dL (70-105); Potassium 3.8 mmol/L (3.5-5.1); Sodium 138 mmol/L (136-145)
[2025-06-29] MEDS ORDERED: Ondansetron PF 4 MG/2 ML Vial ONE (23:27)
[2025-06-29] MEDS ORDERED: Ketorolac Tromethamine 30 MG (1 mL) VIAL ONE (23:30)
[2025-06-30 01:10] LABS: Bacteria/HPF None Seen HPF (None Seen); CAUTI Indications for Culture Pelvic or flank pain; Glucose, Urine (Dipstick) Normal (Negative); Leukocyte Negative Leu/uL (Negative); Protein, Urine (Dipstick) Negative (Neg-Trace); Specific Gravity, Urine 1.013 (1.002-1.036)
[2025-06-30 01:11] LABS: Urine Culture Reflex No No
[2025-06-30] MEDS ORDERED: Metoclopramide HCl 10 MG (2 mL) VIAL ONE (02:20)
[2025-06-30] MEDS ORDERED: diphenhydrAMINE 50 MG/ML VIAL ONE (02:20)
[2025-06-30] MEDS ORDERED: Mag-Al 1200 mg/1200 mg/30 ML UDCUP ONE (02:21)
[2025-06-30] MEDS ORDERED: Lidocaine Viscous Sol 2% 15 ml UD Cup ONE (02:21)
[2025-06-30] MEDS ORDERED: Iopamidol-370 76% 500 ML MDV (1 ML CHARGE) ONE (12:01)
== END 2025-06-30 03:25 | disposition home or self-care (01) ==
LOC: ERS 19:56
DX: R11.2 Nausea with vomiting, unspecified (principal); R51.9 Headache, unspecified; E11.9 Type 2 diabetes mellitus without complications; I10 Essential (primary) hypertension; Z79.84 Long term (current) use of oral hypoglycemic drugs; Z79.899 Other long term (current) drug therapy
CPT/HCPCS: 36415; 74177; 80053; 81001; 85025; 96374; 96375; J1200; J1885; J2405; J2765; J3010; Q9967

== ENCOUNTER 2025-10-21 05:34 | Emergency (ER) | payer OTHER ==
[2025-10-21] MEDS ORDERED: Milk Of Magnesia 30 ML UDCUP ONE (06:30)
[2025-10-21] MEDS ORDERED: Lidocaine Viscous Sol 2% 15 ml UD Cup ONE (06:30)
[2025-10-21] MEDS ORDERED: Mag-Al 1200 mg/1200 mg/30 ML UDCUP ONE (06:30)
[2025-10-21] MEDS ORDERED: Famotidine 20 MG TAB ONE (06:31)
== END 2025-10-21 08:15 | disposition home health service, planned readmission (86) ==
LOC: ERS 05:34
DX: K21.00 Gastro-esophageal reflux disease with esophagitis, without bleeding (principal); E11.9 Type 2 diabetes mellitus without complications; I10 Essential (primary) hypertension; Z79.84 Long term (current) use of oral hypoglycemic drugs; Z79.899 Other long term (current) drug therapy
CPT/HCPCS: 93005; 99283; Q0162